=== PATIENT | male | born 1995 | race Caucasian/White ===

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

== ENCOUNTER 2020-12-27 12:47 | Emergency (ER) | payer SELFPAY ==
--- NOTE | 2020-12-27 13:00 | ERPHSYRPT ---
- History of Present Illness Time Seen by Provider: 12/27/20 12:59 Historian: patient Exam Limitations: no limitations Patient Subjective Stated Complaint: Chest pain Triage Nursing Assessment: Patient ambulated back to ED and transferred self to bed. Patient A+O X3. Patient's skin pink, warm and dry. Patient complains of left sided chest discomfort that hurts when taking a deep breath or moving 8/10. Lungs clear a/p etta. Patient denies SOB. Physician History: This is a 25-year-old white male has no prior cardiac history and presents with intermittent left-sided chest pain that is worse with inspiration. He states he is not short of breath. He had no cough present. He denies fevers. He has never had the degree of pain that he has today but he has had intermittent chest pain in the past. He is on no medications. He denies trauma to his chest. Timing/Duration: day(s) (2), worse Quality: sharpness Location: other (Left-sided chest pain) Chest Pain Radiation: no radiation Severity of Pain-Max: mild Severity of Pain-Current: mild Modifying Factors: Improves With: nothing Associated Symptoms: denies symptoms Prior Chest Pain/Cardiac Workup: no prior chest pain Nitro Today/Relief: no nitro taken today Aspirin Treatment Today: no aspirin today Allergies/Adverse Reactions: No Known Drug Allergies Allergy (Verified 12/27/20 12:53) Hx Tetanus, Diphtheria Vaccination/Date Given: Yes (up to date) Hx Influenza Vaccination/Date Given: No Hx Pneumococcal Vaccination/Date Given: No Immunizations Up to Date: Yes Travel Risk - International Travel Have you traveled outside of the country in past 3 weeks: No - Coronavirus Screening Are you exhibiting any of the following symptoms?: No Close contact with a COVID-19 positive Pt in past 14-21 Days: No - Vaccine Status Have you recieved a Covid-19 vaccination: No - Review of Systems Constitutional: No Symptoms Eyes: No Symptoms Ears, Nose, & Throat: No Symptoms Respiratory: No Symptoms Cardiac: Chest Pain Abdominal/Gastrointestinal: No Symptoms Genitourinary Symptoms: No Symptoms Musculoskeletal: No Symptoms Skin: No Symptoms Neurological: No Symptoms Psychological: No Symptoms Endocrine: No Symptoms Hematologic/Lymphatic: No Symptoms Immunological/Allergic: No Symptoms All Other Systems: Reviewed and Negative - Past Medical History Pertinent Past Medical History: No Neurological History: No Pertinent History ENT History: No Pertinent History Cardiac History: No Pertinent History Respiratory History: No Pertinent History Endocrine Medical History: No Pertinent History Musculoskeletal History: No Pertinent History GI Medical History: No Pertinent History History: No Pertinent History Psycho-Social History: No Pertinent History Male Reproductive Disorders: No Pertinent History - Past Surgical History Past Surgical History: Yes Neuro Surgical History: No Pertinent History Cardiac: No Pertinent History Respiratory: No Pertinent History Gastrointestinal: No Pertinent History Genitourinary: No Pertinent History Musculoskeletal: No Pertinent History Male Surgical History: No Pertinent History Other Surgical History: eye surgery at 3 - Social History Smoking Status: Current every day smoker How long have you smoked: years Exposure to second hand smoke: Yes Drug Use: none Patient Lives Alone: No - Nursing Vital Signs Nursing Vital Signs: Initial Vital Signs Temperature 98.0 F 12/27/20 12:54 Pulse Rate 70 12/27/20 12:54 Respiratory Rate 18 12/27/20 12:54 Blood Pressure 124/83 12/27/20 12:54 O2 Sat by Pulse Oximetry 98 12/27/20 12:54 Pain Scale Pain Intensity 8 - Physical Exam General Appearance: no apparent distress, alert, anxiety Eye Exam: PERRL/EOMI, eyes nml inspection Ears, Nose, Throat Exam: normal ENT inspection, moist mucous membranes Neck Exam: normal inspection, non-tender, supple, full range of motion Respiratory Exam: normal breath sounds, chest tenderness, lungs clear, airway intact, No respiratory distress Cardiovascular Exam: regular rate/rhythm, normal heart sounds, normal peripheral pulses Gastrointestinal/Abdomen Exam: soft, normal bowel sounds, No tenderness Rectal Exam: not done Back Exam: normal inspection, normal range of motion, No CVA tenderness, No vertebral tenderness Extremity Exam: normal inspection, normal range of motion, pelvis stable Neurologic Exam: alert, oriented x 3, cooperative, rig mechanic II-XII nml as tested, normal mood/affect, nml cerebellar function, nml station & gait, sensation nml Skin Exam: normal color, warm, dry Lymphatic Exam: No adenopathy SpO2 Interpretation: normal SpO2: 98 O2 Delivery: Room Air - Course Nursing assessment & vital signs reviewed: Yes EKG Interpreted by Me: RATE (63), Sinus Rhythm, NORMAL AXIS, NORMAL INTERVALS, NORMAL QRS, NORMAL ST-T, Other (No acute ischemic changes. No comparison EKG.) Ordered Tests: Active Orders 24 hr Category Date Time Status EKG-ER Only STAT Care 12/27/20 13:13 Active IV Insertion STAT Care 12/27/20 13:13 Active Pulse Oximetry (ED) STAT Care 12/27/20 13:13 Active CHEST 1 VIEW (PORTABLE) Stat Exams 12/27/20 13:13 Completed CBC W DIFF Stat Lab 12/27/20 13:13 Completed CMP Stat Lab 12/27/20 13:13 Completed D-DIMER QUANTITATIVE Stat Lab 12/27/20 13:13 Received TROPONIN Q3H Lab 12/27/20 13:13 Completed TROPONIN Q3H Lab 12/27/20 16:15 Ordered TROPONIN Q3H Lab 12/27/20 19:15 Ordered TROPONIN Q3H Lab 12/27/20 22:15 Ordered TROPONIN Q3H Lab 12/28/20 01:15 Ordered Medication Summary Discontinued Medications Generic Name Dose Route Start Last Admin Trade Name Freq PRN Reason Stop Dose Admin Aspirin 324 mg 12/27/20 13:13 12/27/20 13:19 Aspirin 81 Mg Tab.Chew PO 12/27/20 13:14 324 mg STAT ONE Administration Aspirin Confirm 12/27/20 13:16 Aspirin 81 Mg Tab.Chew Administered 12/27/20 13:17 Dose 324 mg .ROUTE .STK-MED ONE Lab/Rad Data: Laboratory Result Diagrams 12/27/20 13:13 12/27/20 13:13 Laboratory Results 12/27/20 12/27/20 12/27/20 Range/Units 13:13 13:13 13:13 WBC 6.9 (4.0-10.5) K/mm3 RBC 5.05 (4.1-5.6) M/mm3 Hgb 15.5 (12.5-18.0) gm/dl Hct 45.7 (42-50) % MCV 90.5 (78-100) fl MCH 30.7 (26-32) pg MCHC 33.9 (32-36) g/dl RDW 12.3 (11.5-14.0) % Plt Count 232 (150-450) K/mm3 MPV 10.2 (7.5-11.0) fl Gran % 58.8 (36.0-66.0) % Eos # (Auto) 0.20 (0-0.5) Absolute Lymphs (auto) 1.80 (1.0-4.6) Absolute Monos (auto) 0.80 (0.0-1.3) Lymphocytes % 26.3 (24.0-44.0) % Monocytes % 11.7 (0.0-12.0) % Eosinophils % 2.9 (0.00-5.0) % Basophils % 0.3 (0.0-0.4) % Absolute Granulocytes 4.03 (1.4-6.9) Basophils # 0.02 (0-0.4) Sodium 139 (137-145) mmol/L Potassium 4.3 (3.5-5.1) mmol/L Chloride 103 (98-107) mmol/L Carbon Dioxide 27 (22-30) mmol/L Anion Gap 13.8 (5-15) MEQ/L BUN 16 (9-20) mg/dL Creatinine 0.82 (0.66-1.25) mg/dL Estimated GFR > 60.0 ML/MIN Glucose 91 (74-106) mg/dL Calcium 9.5 (8.4-10.2) mg/dL Total Bilirubin 0.60 (0.2-1.3) mg/dL AST 27 (17-59) U/L ALT 15 (0-50) U/L Alkaline Phosphatase 54 (38-126) U/L Troponin I < 0.012 (0.000-0.034) ng/mL Serum Total Protein 7.8 (6.3-8.2) g/dL Albumin 4.7 (3.5-5.0) g/dL - Progress Progress: unchanged Air Movement: good Progress Note: 12/27/20 14:03 Chest x-ray shows new minimal right lower lobe atelectasis versus scarring. Blood Culture(s) Obtained: No Antibiotics given: No Counseled pt/family regarding: lab results, diagnosis, need for follow-up, rad results - Departure Departure Disposition: Home Clinical Impression: Non-cardiac chest pain, Pleurisy Condition: Stable Critical Care Time: No Referrals: JOSHUA JEFFERS MD [Primary Care Provider] - Additional Instructions: Drink plenty of fluids. Use [id number] Tylenol as instructed on the pa ckage. Follow-up with your primary care physician for further management. Prescriptions: Prednisone 10 mg [Deltasone 10 mg] 10 mg PO TID #12 tablet
[2020-12-27] MEDS ORDERED: BABY ASPIRIN 81 MG CHEW PO ONE (13:13)
[2020-12-27] MEDS ORDERED: BABY ASPIRIN 81 MG CHEW ONE (13:16)
[2020-12-27 13:33] LABS: Absolute Neutrophil Ct (ANC) 4.03 (1.4-6.9); BASOPHIL % 0.3 % (0.0-0.4); Basophil (Absolute #) 0.02 (0-0.4); Eosinophil % 2.9 % (0.00-5.0); Hematocrit 45.7 % (42-50); Hemoglobin 15.5 gm/dl (12.5-18.0); Lymphocytes % 26.3 % (24.0-44.0); Mean Cell Volume 90.5 fl (78-100); Mean Corpuscular Hemoglobin 30.7 pg (26-32); Mean Corpuscular Hgb Concent. 33.9 g/dl (32-36); Mean Platelet Volume 10.2 fl (7.5-11.0); Monocytes % 11.7 % (0.0-12.0); Neutrophil % 58.8 % (36.0-66.0); Platelet Count 232 K/mm3 (150-450); Red Blood Count 5.05 M/mm3 (4.1-5.6); Red Cell Distribution Width 12.3 % (11.5-14.0); White Blood Count 6.9 K/mm3 (4.0-10.5)
[2020-12-27 13:41] LABS: ALBUMIN 4.7 g/dL (3.5-5.0); ALKALINE PHOSPHATASE 54 U/L (38-126); ANION GAP 13.8 MEQ/L (5-15); BLOOD UREA NITROGEN 16 mg/dL (9-20); CHLORIDE 103 mmol/L (98-107); Calcium 9.5 mg/dL (8.4-10.2); Carbon Dioxide 27 mmol/L (22-30); Creatinine 1 0.82 mg/dL (0.66-1.25); EST GLOMERULAR FILTRATION RATE > 60.0 ML/MIN; Glucose 91 mg/dL (74-106); Potassium 4.3 mmol/L (3.5-5.1); SGOT/AST 27 U/L (17-59); SGPT/ALT 15 U/L (0-50); SODIUM 139 mmol/L (137-145); Total Protein 7.8 g/dL (6.3-8.2)
--- NOTE | 2020-12-27 13:44 | XRAY ---
Indication: Chest pain. Comparison: August 29, 2014. Portable chest less inflated with new minimal right base subsegmental atelectasis/scarring. Remaining heart, lungs, and bony thorax normal.
[2020-12-27 14:25] VITALS: BP 102/74; PULSE 98; O2SAT 99
== END 2020-12-27 14:25 | disposition home or self-care (01) ==
LOC: ED 12:47
DX: R07.89 Other chest pain (principal); R09.1 Pleurisy
CPT/HCPCS: 36000; 36415; 71045; 80053; 84484; 85025; 85379; 93005; 94760; 99284; A9270-GY

== ENCOUNTER 2021-06-26 18:51 | Emergency (ER) | payer MEDICAID, OTHER, SELFPAY ==
--- NOTE | 2021-06-26 19:12 | ERPHSYRPT ---
- History of Present Illness Time Seen by Provider: 06/26/21 19:07 Historian: patient Exam Limitations: no limitations Patient Subjective Stated Complaint: Chest pain Triage Nursing Assessment: Patient ambulated back to ED and transferred self to bed. Patient A+O X 3. Patient's skin pink, warm and dry. Patient complains of left sided chest pain that radiates down left chest that started around 1630. Patient denies N/V. Physician History: This is a 25-year-old white male with history of intermittent left-sided chest pain for several months. He is a patient of Dr. Jeffers. He had similar symptoms on 12/27/2020. At 430 today, he had sudden onset of left sided chest pain that radiated into his left arm. He is currently daily smoker of cigarettes. He takes no medications chronically and has no known drug allergies. Timing/Duration: today Quality: sharpness Location: other (Left anterior chest) Chest Pain Radiation: arm (Left) Severity of Pain-Max: moderate Severity of Pain-Current: moderate Modifying Factors: Improves With: nothing Associated Symptoms: denies symptoms Nitro Today/Relief: no nitro taken today Aspirin Treatment Today: 81 mg x 4, provided by ED Allergies/Adverse Reactions: No Known Drug Allergies Allergy (Verified 06/26/21 18:55) Home Medications: No Reportable Medications [No Reported Medications] 06/26/21 [History] Hx Tetanus, Diphtheria Vaccination/Date Given: Yes (up to date) Hx Influenza Vaccination/Date Given: No Hx Pneumococcal Vaccination/Date Given: No Immunizations Up to Date: Yes Travel Risk - International Travel Have you traveled outside of the country in past 3 weeks: No - Coronavirus Screening Are you exhibiting any of the following symptoms?: No Close contact with a COVID-19 positive Pt in past 14-21 Days: No - Vaccine Status Have you recieved a Covid-19 vaccination: No - Review of Systems Constitutional: No Symptoms Eyes: No Symptoms Ears, Nose, & Throat: No Symptoms Respiratory: No Symptoms Cardiac: Chest Pain Abdominal/Gastrointestinal: No Symptoms Genitourinary Symptoms: No Symptoms Musculoskeletal: No Symptoms Skin: No Symptoms Neurological: No Symptoms Psychological: No Symptoms Endocrine: No Symptoms Hematologic/Lymphatic: No Symptoms Immunological/Allergic: No Symptoms All Other Systems: Reviewed and Negative - Past Medical History Pertinent Past Medical History: No Neurological History: No Pertinent History ENT History: No Pertinent History Cardiac History: No Pertinent History Respiratory History: No Pertinent History Endocrine Medical History: No Pertinent History Musculoskeletal History: No Pertinent History GI Medical History: No Pertinent History History: No Pertinent History Psycho-Social History: No Pertinent History Male Reproductive Disorders: No Pertinent History - Past Surgical History Past Surgical History: Yes Neuro Surgical History: No Pertinent History Cardiac: No Pertinent History Respiratory: No Pertinent History Gastrointestinal: No Pertinent History Genitourinary: No Pertinent History Musculoskeletal: No Pertinent History Male Surgical History: No Pertinent History Other Surgical History: eye surgery at 3 - Social History Smoking Status: Current every day smoker How long have you smoked: years Exposure to second hand smoke: Yes Drug Use: none Patient Lives Alone: No - Nursing Vital Signs Nursing Vital Signs: Initial Vital Signs Temperature 97.9 F 06/26/21 18:56 Pulse Rate 85 06/26/21 18:56 Respiratory Rate 14 06/26/21 18:56 Blood Pressure 140/81 06/26/21 18:56 O2 Sat by Pulse Oximetry 100 06/26/21 18:56 Pain Scale Pain Intensity 6 - Physical Exam General Appearance: no apparent distress, alert, anxiety Eye Exam: PERRL/EOMI, eyes nml inspection Ears, Nose, Throat Exam: normal ENT inspection, moist mucous membranes Neck Exam: normal inspection, non-tender, supple, full range of motion Respiratory Exam: normal breath sounds, chest tenderness, lungs clear, respiratory distress, airway intact Cardiovascular Exam: regular rate/rhythm, normal heart sounds, normal peripheral pulses Gastrointestinal/Abdomen Exam: soft, normal bowel sounds, No tenderness Rectal Exam: not done Back Exam: normal inspection, normal range of motion, No CVA tenderness, No vertebral tenderness Extremity Exam: normal inspection, normal range of motion, pelvis stable Neurologic Exam: alert, oriented x 3, cooperative, leno sewer II-XII nml as tested, normal mood/affect, nml cerebellar function, nml station & gait, sensation nml Skin Exam: normal color, warm, dry Lymphatic Exam: No adenopathy SpO2 Interpretation: normal SpO2: 100 O2 Delivery: Room Air - Course Nursing assessment & vital signs reviewed: Yes EKG Interpreted by Me: RATE (82), Sinus Rhythm, NORMAL AXIS, NORMAL INTERVALS, NORMAL QRS, NORMAL ST-T, Other (No ischemic changes. When compared to EKG of 1 , there are no changes) Ordered Tests: Active Orders 24 hr Category Date Time Status Cold Roller STAT Care 06/26/21 19:13 Active EKG-ER Only STAT Care 06/26/21 19:12 Active IV Insertion STAT Care 06/26/21 19:12 Active Pulse Oximetry (ED) STAT Care 06/26/21 19:12 Active CHEST 1 VIEW (PORTABLE) Stat Exams 06/26/21 19:24 Taken CBC W DIFF Stat Lab 06/26/21 19:21 Completed CMP Stat Lab 06/26/21 19:21 Completed D-DIMER QUANTITATIVE Stat Lab 06/26/21 19:21 Completed TROPONIN Q3H Lab 06/26/21 19:21 Completed TROPONIN Q3H Lab 06/26/21 22:15 Ordered TROPONIN Q3H Lab 06/27/21 01:15 Ordered TROPONIN Q3H Lab 06/27/21 04:15 Ordered TROPONIN Q3H Lab 06/27/21 07:15 Ordered Medication Summary Discontinued Medications Generic Name Dose Route Start Last Admin Trade Name Freq PRN Reason Stop Dose Admin Aspirin 324 mg 06/26/21 19:14 06/26/21 19:19 Aspirin 81 Mg Tab.Chew PO 06/26/21 19:15 324 mg STAT ONE Administration Aspirin Confirm 06/26/21 19:19 Aspirin 81 Mg Tab.Chew Administered 06/26/21 19:20 Dose 81 mg .ROUTE .STK-MED ONE Morphine Sulfate 2 mg 06/26/21 19:27 06/26/21 19:37 Morphine Sulfate 2 Mg/Ml Inj IV 06/26/21 19:28 2 mg STAT ONE Administration Morphine Sulfate Confirm 06/26/21 19:34 Morphine Sulfate 2 Mg/Ml Inj Administered 06/26/21 19:35 Dose 2 mg .ROUTE .STK-MED ONE Ondansetron HCl 4 mg 06/26/21 19:27 06/26/21 19:36 Ondansetron Hcl 4 Mg/2 Ml Vial IV 06/26/21 19:28 4 mg STAT ONE Administration Ondansetron HCl Confirm 06/26/21 19:34 Ondansetron Hcl 4 Mg/2 Ml Vial Administered 06/26/21 19:35 Dose 4 mg .ROUTE .STK-MED ONE Lab/Rad Data: Laboratory Result Diagrams 06/26/21 19:21 06/26/21 19:21 Laboratory Results 06/26/21 06/26/21 06/26/21 Range/Units 19:21 19:21 19:21 WBC (4.0-10.5) K/mm3 RBC (4.1-5.6) M/mm3 Hgb (12.5-18.0) gm/dl Hct (42-50) % MCV (78-100) fl MCH (26-32) pg MCHC (32-36) g/dl RDW (11.5-14.0) % Plt Count (150-450) K/mm3 MPV (7.5-11.0) fl Gran % (36.0-66.0) % Eos # (Auto) (0-0.5) Absolute Lymphs (auto) (1.0-4.6) Absolute Monos (auto) (0.0-1.3) Lymphocytes % (24.0-44.0) % Monocytes % (0.0-12.0) % Eosinophils % (0.00-5.0) % Basophils % (0.0-0.4) % Absolute Granulocytes (1.4-6.9) Basophils # (0-0.4) D-Dimer < 215 L (215-500) ng/mL Sodium 139 (137-145) mmol/L Potassium 3.9 (3.5-5.1) mmol/L Chloride 102 (98-107) mmol/L Carbon Dioxide 25 (22-30) mmol/L Anion Gap 15.4 H (5-15) MEQ/L BUN 15 (9-20) mg/dL Creatinine 0.80 (0.66-1.25) mg/dL Estimated GFR > 60.0 ML/MIN Glucose 96 (74-106) mg/dL Calcium 9.5 (8.4-10.2) mg/dL Total Bilirubin 0.60 (0.2-1.3) mg/dL AST 33 (17-59) U/L ALT 37 (0-50) U/L Alkaline Phosphatase 60 (38-126) U/L Troponin I < 0.012 (0.000-0.034) ng/mL Serum Total Protein 7.7 (6.3-8.2) g/dL Albumin 4.6 (3.5-5.0) g/dL 06/26/21 Range/Units 19:21 WBC 9.0 (4.0-10.5) K/mm3 RBC 4.92 (4.1-5.6) M/mm3 Hgb 15.1 (12.5-18.0) gm/dl Hct 43.9 (42-50) % MCV 89.2 (78-100) fl MCH 30.7 (26-32) pg MCHC 34.4 (32-36) g/dl RDW 12.7 (11.5-14.0) % Plt Count 252 (150-450) K/mm3 MPV 9.7 (7.5-11.0) fl Gran % 65.7 (36.0-66.0) % Eos # (Auto) 0.14 (0-0.5) Absolute Lymphs (auto) 2.06 (1.0-4.6) Absolute Monos (auto) 0.86 (0.0-1.3) Lymphocytes % 23.0 L (24.0-44.0) % Monocytes % 9.6 (0.0-12.0) % Eosinophils % 1.6 (0.00-5.0) % Basophils % 0.1 (0.0-0.4) % Absolute Granulocytes 5.89 (1.4-6.9) Basophils # 0.01 (0-0.4) D-Dimer (215-500) ng/mL Sodium (137-145) mmol/L Potassium (3.5-5.1) mmol/L Chloride (98-107) mmol/L Carbon Dioxide (22-30) mmol/L Anion Gap (5-15) MEQ/L BUN (9-20) mg/dL Creatinine (0.66-1.25) mg/dL Estimated GFR ML/MIN Glucose (74-106) mg/dL Calcium (8.4-10.2) mg/dL Total Bilirubin (0.2-1.3) mg/dL AST (17-59) U/L ALT (0-50) U/L Alkaline Phosphatase (38-126) U/L Troponin I (0.000-0.034) ng/mL Serum Total Protein (6.3-8.2) g/dL Albumin (3.5-5.0) g/dL - Progress Progress: improved, re-examined Air Movement: good Progress Note: 06/26/21 19:54 Chest x-ray shows no acute cardiopulmonary process Blood Culture(s) Obtained: No Antibiotics given: No Counseled pt/family regarding: lab results, diagnosis, need for follow-up, rad results - Departure Departure Disposition: Home Clinical Impression: Non-cardiac chest pain Condition: Stable Critical Care Time: No Referrals: JOSHUA JEFFERS MD [Primary Care Provider] - Follow up/PCP as directed Additional Instructions: Stop vaping and stop using tobacco in any form. Follow-up with your primary care doctor for further evaluation management including referral to a charging crane operator if indicated.
[2021-06-26] MEDS ORDERED: BABY ASPIRIN 81 MG CHEW PO ONE (19:14)
[2021-06-26] MEDS ORDERED: BABY ASPIRIN 81 MG CHEW ONE (19:19)
[2021-06-26 19:27] LABS: Absolute Neutrophil Ct (ANC) 5.89 (1.4-6.9); Basophil (Absolute #) 0.01 (0-0.4); Eosinophil % 1.6 % (0.00-5.0); Eosinophil (Absolute #) 0.14 (0-0.5); Hematocrit 43.9 % (42-50); Hemoglobin 15.1 gm/dl (12.5-18.0); Lymphocyte (Absolute #) 2.06 (1.0-4.6); Mean Cell Volume 89.2 fl (78-100); Mean Corpuscular Hemoglobin 30.7 pg (26-32); Mean Corpuscular Hgb Concent. 34.4 g/dl (32-36); Mean Platelet Volume 9.7 fl (7.5-11.0); Monocyte (Absolute #) 0.86 (0.0-1.3); Monocytes % 9.6 % (0.0-12.0); Neutrophil % 65.7 % (36.0-66.0); Platelet Count 252 K/mm3 (150-450); Red Blood Count 4.92 M/mm3 (4.1-5.6); Red Cell Distribution Width 12.7 % (11.5-14.0)
[2021-06-26] MEDS ORDERED: MORPHINE SULFATE 2 MG INJ IV ONE (19:27)
[2021-06-26] MEDS ORDERED: Zofran 4 MG/2 ML VIAL IV ONE (19:27)
[2021-06-26] MEDS ORDERED: MORPHINE SULFATE 2 MG INJ ONE (19:34)
[2021-06-26] MEDS ORDERED: Zofran 4 MG/2 ML VIAL ONE (19:34)
[2021-06-26 19:35] LABS: ALBUMIN 4.6 g/dL (3.5-5.0); ALKALINE PHOSPHATASE 60 U/L (38-126); ANION GAP 15.4 MEQ/L (5-15); BLOOD UREA NITROGEN 15 mg/dL (9-20); CHLORIDE 102 mmol/L (98-107); Calcium 9.5 mg/dL (8.4-10.2); Carbon Dioxide 25 mmol/L (22-30); EST GLOMERULAR FILTRATION RATE > 60.0 ML/MIN; Glucose 96 mg/dL (74-106); Potassium 3.9 mmol/L (3.5-5.1); SGOT/AST 33 U/L (17-59); SGPT/ALT 37 U/L (0-50); SODIUM 139 mmol/L (137-145); Total Protein 7.7 g/dL (6.3-8.2)
[2021-06-26 20:07] VITALS: BP 123/57; PULSE 63; O2SAT 98
--- NOTE | 2021-06-27 09:02 | XRAY ---
Indication: Left chest pain. Comparison: December 27, 2020. Portable chest demonstrates normal heart, lungs, and bony thorax.
== END 2021-06-26 20:10 | disposition home or self-care (01) ==
LOC: ED 18:51
DX: R07.89 Other chest pain (principal); Z72.0 Tobacco use
CPT/HCPCS: 36000; 36415; 71045; 80053; 84484; 85025; 85379; 93005; 93041; 94760; 96374; 96375; 99284; J2270; J2405; A9270-GY

== ENCOUNTER 2021-12-28 20:03 | Emergency (ER) | payer BC ==
[2021-12-28] MEDS ORDERED: Sodium Chloride 0.9% 1000 ML 1,000 ML IV STA (20:19)
[2021-12-28] MEDS ORDERED: TORAdol 30 mg Injection IV ONE (20:20)
[2021-12-28] MEDS ORDERED: TYLENOL 325 MG PO ONE (20:20)
[2021-12-28] MEDS ORDERED: BENADRYL 50 MG/ML IV ONE (20:20)
[2021-12-28] MEDS ORDERED: Reglan 10 MG/2 ML IV ONE (20:20)
[2021-12-28 20:41] LABS: Appearance CLEAR (CLEAR); Bilirubin NEGATIVE (NEGATIVE); Epithelial Cells RARE /HPF (FEW); Glucose NEGATIVE (NEGATIVE); Ketones NEGATIVE (NEGATIVE); Mucus SLIGHT /HPF (NEGATIVE); RBC 0-2 /HPF (0-2); Specific Gravity 1.025 (1.005-1.025); WBC 0-2 /HPF (0-5)
[2021-12-28 20:42] LABS: Bacteria NONE SEEN /HPF (NEGATIVE); Dipstick done @ ? MAIN LAB; Nitrite NEGATIVE (NEGATIVE); Protein,Urine Dip NEGATIVE (Negative); RBC NEGATIVE Ery/ul (0-5); Urine Cultured Indicated? NO; Urobilinogen 1 mg/dL (0-1)
[2021-12-28 20:57] LABS: Amphetamine,Urine NEGATIVE (NEGATIVE); Barbiturate,Urine NEGATIVE (NEGATIVE); Benzodiazepine,Urine NEGATIVE (NEGATIVE); Cocaine,Urine NEGATIVE (NEGATIVE); Methadone,Urine NEGATIVE (NEGATIVE); Opiate,Urine NEGATIVE (NEGATIVE); PCP,Urine NEGATIVE (NEGATIVE); THC,Urine POSITIVE (NEGATIVE)
[2021-12-28 21:07] LABS: Absolute Neutrophil Ct (ANC) 3.54 x10^3/uL (1.4-6.9); Basophil (Absolute #) 0.01 x10^3/uL (0-0.4); Eosinophil % 2.2 % (0.00-5.0); Eosinophil (Absolute #) 0.12 x10^3/uL (0-0.5); Hematocrit 44.3 % (42-50); Hemoglobin 15.1 g/dL (12.5-18.0); Lymphocyte (Absolute #) 1.01 x10^3/uL (1.0-4.6); Lymphocytes % 18.6 % (24.0-44.0); Mean Cell Volume 90.2 fL (78-100); Mean Corpuscular Hemoglobin 30.8 pg (26-32); Mean Corpuscular Hgb Concent. 34.1 g/dL (32-36); Mean Platelet Volume 9.3 fL (7.5-11.0); Monocyte (Absolute #) 0.73 x10^3/uL (0.0-1.3); Monocytes % 13.5 % (0.0-12.0); Neutrophil % 65.3 % (36.0-66.0); Platelet Count 219 x10^3/uL (150-450); Red Blood Count 4.91 x10^6/uL (4.1-5.6); Red Cell Distribution Width 12.1 % (11.5-14.0); White Blood Count 5.4 x10^3/uL (4.0-10.5)
[2021-12-28] MEDS ORDERED: TORAdol 30 mg Injection ONE (21:07)
[2021-12-28] MEDS ORDERED: BENADRYL 50 MG/ML ONE (21:07)
[2021-12-28] MEDS ORDERED: TYLENOL 325 MG ONE (21:08)
[2021-12-28] MEDS ORDERED: Sodium Chloride 0.9% 1000 ML 1,000 ML ONE (21:09)
[2021-12-28] MEDS ORDERED: Reglan 10 MG/2 ML ONE (21:09)
[2021-12-28 21:20] LABS: ALBUMIN 4.7 g/dL (3.5-5.0); ALKALINE PHOSPHATASE 53 U/L (38-126); ANION GAP 12.6 MEQ/L (5-15); BLOOD UREA NITROGEN 13 mg/dL (9-20); CHLORIDE 103 mmol/L (98-107); Calcium 9.6 mg/dL (8.4-10.2); Carbon Dioxide 27 mmol/L (22-30); Creatinine 1 0.76 mg/dL (0.66-1.25); EST GLOMERULAR FILTRATION RATE > 60.0 ML/MIN; ETHYL ALCOHOL < 10 mg/dL (0-10); Glucose 104 mg/dL (74-106); MAGNESIUM 1.9 mg/dL (1.6-2.3); SGOT/AST 18 U/L (17-59); SGPT/ALT 17 U/L (0-50); SODIUM 138 mmol/L (137-145); Total Protein 7.6 g/dL (6.3-8.2)
[2021-12-28 22:06] VITALS: BP 102/60; PULSE 52; O2SAT 96
--- NOTE | 2021-12-28 22:31 | ERPHSYRPT ---
- History of Present Illness Time Seen by Provider: 12/28/21 20:08 Source: patient, family Exam Limitations: no limitations Patient Subjective Stated Complaint: Pt states "I was on my way to work and I started feeling confused. I went to [facility] the other day and they did the labs and swabs." Triage Nursing Assessment: Pt ambulatory to bed by self, pt alert and oriented x3, pt c/o intermittent confusion and headache, pt was seen at [facility] and had labs and swabs done. 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 Patient reports he does not feel himself. Earlier he was driving to work and felt as if he was confused. When asked patient could not explain what did he mean by confusion. Reports having dull aching headache mild to moderate with no significant aggravating relieving factors. Denies associated neck pain, nausea vomiting, blurry vision, difficulty speech etc. Patient report he drinks heavily but have not had a drink in the last few days. He denies any drug use. No fever or chills repor stephenie. Denies any chest pain palpitations or shortness of breath. Timing/Duration: day(s) (2), intermittent, gradual onset Quality: dullness Head Pain Location: frontal, temporal, parietal Severity of Pain-Max: moderate Severity of Pain-Current: moderate Recent Head Trauma: no recent headache/trauma Associated Symptoms: confusion, fatigue, No facial pain, No fever/chills, No light-headedness, No loss of consciousness, No nausea/vomiting, No nasal congestion, No neck pain, No numbness in legs/feet, No sweating, No seizures, No sinus infection, No sensitive to light, No speech problems, No stiff neck, No trouble walking, No vision changes, No visual disturbance Previous symptoms: no prior history Allergies/Adverse Reactions: No Known Drug Allergies Allergy (Verified 12/28/21 20:12) Home Medications: No Reportable Medications [No Reported Medications] 06/26/21 [History] Hx Tetanus, Diphtheria Vaccination/Date Given: No Hx Influenza Vaccination/Date Given: No Hx Pneumococcal Vaccination/Date Given: No Immunizations Up to Date: Yes Travel Risk - International Travel Have you traveled outside of the country in past 3 weeks: No - Coronavirus Screening Are you exhibiting any of the following symptoms?: No Close contact with a COVID-19 positive Pt in past 14-21 Days: No - Vaccine Status Have you recieved a Covid-19 vaccination: No - Review of Systems Constitutional: Fatigue Eyes: No Symptoms Ears, Nose, & Throat: No Symptoms Respiratory: No Symptoms Cardiac: No Symptoms Abdominal/Gastrointestinal: No Symptoms Genitourinary Symptoms: No Symptoms Musculoskeletal: No Symptoms Skin: No Symptoms Neurological: Headache Psychological: No Symptoms Endocrine: No Symptoms Hematologic/Lymphatic: No Symptoms Immunological/Allergic: No Symptoms - Past Medical History Pertinent Past Medical History: No Neurological History: No Pertinent History ENT History: No Pertinent History Cardiac History: No Pertinent History Respiratory History: No Pertinent History Endocrine Medical History: No Pertinent History Musculoskeletal History: No Pertinent History GI Medical History: No Pertinent History History: No Pertinent History Psycho-Social History: No Pertinent History Male Reproductive Disorders: No Pertinent History - Past Surgical History Past Surgical History: Yes Neuro Surgical History: No Pertinent History Cardiac: No Pertinent History Respiratory: No Pertinent History Gastrointestinal: No Pertinent History Genitourinary: No Pertinent History Musculoskeletal: No Pertinent History Male Surgical History: No Pertinent History Other Surgical History: eye surgery at 3 - Social History Smoking Status: Current every day smoker How long have you smoked: years Exposure to second hand smoke: Yes Drug Use: none Patient Lives Alone: No - Nursing Vital Signs Nursing Vital Signs: Initial Vital Signs Temperature 98.0 F 12/28/21 20:12 Pulse Rate 64 12/28/21 20:12 Respiratory Rate 18 12/28/21 20:12 Blood Pressure 127/79 12/28/21 20:12 O2 Sat by Pulse Oximetry 98 12/28/21 20:12 Pain Scale Pain Intensity 6 - Physical Exam General Appearance: no apparent distress, alert Eye Exam: PERRL/EOMI, eyes nml inspection Ears, Nose, Throat Exam: normal ENT inspection, TMs normal, pharynx normal, moist mucous membranes Neck Exam: normal inspection, non-tender, supple, full range of motion Respiratory Exam: normal breath sounds, lungs clear Cardiovascular Exam: regular rate/rhythm, normal heart sounds Gastrointestinal/Abdominal Exam: soft, normal bowel sounds, No tenderness Back Exam: normal inspection, normal range of motion Extremity Exam: normal inspection, normal range of motion Mental Status Exam: alert, oriented x 3, 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: normal hearing, normal speech, PERRL Coordination/Gait Exam: normal finger to nose, normal gait, normal cerebellar function, negative Romberg's sign Motor/Sensory Exam: no motor deficit, no sensory deficit, no pronator drift, negative Babinski's sign DTR Exam: bicep (R): 2+, bicep (L): 2+, knee (R): 2+, knee (L): 2+ Skin Exam: normal color SpO2 Interpretation: normal SpO2: 96 O2 Delivery: Room Air - Course EKG Interpreted by Me: RATE (63), Sinus Rhythm, NORMAL AXIS, NORMAL INTERVALS, NORMAL QRS Ordered Tests: Active Orders 24 hr Category Date Time Status EKG-ER Only STAT Care 12/28/21 20:19 Active IV Insertion STAT Care 12/28/21 20:19 Active NPO (ED) STAT Care 12/28/21 20:19 Active POCT Glucose Check STAT Care 12/28/21 20:19 Active HEAD WITHOUT CONTRAST [CT] Stat Exams 12/28/21 20:20 Taken CBC W DIFF Stat Lab 12/28/21 21:04 Completed CMP Stat Lab 12/28/21 21:04 Completed ETHYL ALCOHOL Stat Lab 12/28/21 21:04 Completed Lactic Acid Stat Lab 12/28/21 21:01 Completed MAGNESIUM Stat Lab 12/28/21 21:04 Completed POCT GLUCOSE Stat Lab 12/28/21 21:01 Completed TROPONIN Q3H Lab 12/28/21 21:04 Completed UA W/RFX CULTURE Stat Lab 12/28/21 20:25 Completed Urine Triage Profile Stat Lab 12/28/21 20:25 Completed Medication Summary Discontinued Medications Generic Name Dose Route Start Last Admin Trade Name Joseq PRN Reason Stop Dose Admin Acetaminophen 975 mg 12/28/21 20:20 12/28/21 21:13 Acetaminophen 325 Mg Tablet PO 12/28/21 20:21 975 mg STAT ONE Administration Acetaminophen Confirm 12/28/21 21:08 Acetaminophen 325 Mg Tablet Administered 12/28/21 21:09 Dose 975 mg .ROUTE .STK-MED ONE Diphenhydramine HCl 25 mg 12/28/21 20:20 12/28/21 21:18 Diphenhydramine Hcl 50 Mg/Ml Vial IV 12/28/21 20:21 25 mg STAT ONE Administration Diphenhydramine HCl Confirm 12/28/21 21:07 Diphenhydramine Hcl 50 Mg/Ml Vial Administered 12/28/21 21:08 Dose 50 mg .ROUTE .STK-MED ONE Sodium Chloride 1,000 mls @ 999 mls/hr 12/28/21 20:19 12/28/21 22:24 Sodium Chloride 0.9% 1000 Ml IV 12/28/21 21:19 Infused .Q1H1M STA Infusion Sodium Chloride Confirm 12/28/21 21:09 Sodium Chloride 0.9% 1000 Ml Administered 12/28/21 21:10 Dose 1,000 mls @ ud .ROUTE .STK-MED ONE Ketorolac Tromethamine 30 mg 12/28/21 20:20 12/28/21 21:16 Ketorolac Tromethamine 30 Mg/Ml Inj IV 12/28/21 20:21 30 mg STAT ONE Administration Ketorolac Tromethamine Confirm 12/28/21 21:07 Ketorolac Tromethamine 30 Mg/Ml Inj Administered 12/28/21 21:08 Dose 30 mg .ROUTE .STK-MED ONE Metoclopramide HCl 10 mg 12/28/21 20:20 12/28/21 21:19 Metoclopramide Hcl 10 Mg/2 Ml Vial IV 12/28/21 20:21 10 mg STAT ONE Administration Metoclopramide HCl Confirm 12/28/21 21:09 Metoclopramide Hcl 10 Mg/2 Ml Vial Administered 12/28/21 21:10 Dose 10 mg .ROUTE .STK-MED ONE Lab/Rad Data: Laboratory Result Diagrams 12/28/21 21:04 12/28/21 21:04 Laboratory Results 12/28/21 12/28/21 12/28/21 Range/Units 21:04 21:04 21:04 WBC 5.4 (4.0-10.5) x10^3/uL RBC 4.91 (4.1-5.6) x10^6/uL Hgb 15.1 (12.5-18.0) g/dL Hct 44.3 (42-50) % MCV 90.2 (78-100) fL MCH 30.8 (26-32) pg MCHC 34.1 (32-36) g/dL RDW 12.1 (11.5-14.0) % Plt Count 219 (150-450) x10^3/uL MPV 9.3 (7.5-11.0) fL Gran % 65.3 (36.0-66.0) % Immature Gran % (Auto) 0.2 (0.00-0.4) % Nucleat RBC Rel Count 0.0 (0.00-0.1) % Eos # (Auto) 0.12 (0-0.5) x10^3/uL Immature Gran # (Auto) 0.01 (0.00-0.03) x10^3u/L Absolute Lymphs (auto) 1.01 (1.0-4.6) x10^3/uL Absolute Monos (auto) 0.73 (0.0-1.3) x10^3/uL Absolute Nucleated RBC 0.00 (0.00-0.01) x10^3u/L Lymphocytes % 18.6 L (24.0-44.0) % Monocytes % 13.5 H (0.0-12.0) % Eosinophils % 2.2 (0.00-5.0) % Basophils % 0.2 (0.0-0.4) % Absolute Granulocytes 3.54 (1.4-6.9) x10^3/uL Basophils # 0.01 (0-0.4) x10^3/uL Sodium 138 (137-145) mmol/L Potassium 4.0 (3.5-5.1) mmol/L Chloride 103 (98-107) mmol/L Carbon Dioxide 27 (22-30) mmol/L Anion Gap 12.6 (5-15) MEQ/L BUN 13 (9-20) mg/dL Creatinine 0.76 (0.66-1.25) mg/dL Estimated GFR > 60.0 ML/MIN Glucose 104 (74-106) mg/dL POC Glucometer (74 to 106) mg/dL Lactic Acid (0.4-2.0) Calcium 9.6 (8.4-10.2) mg/dL Magnesium 1.9 (1.6-2.3) mg/dL Total Bilirubin 0.70 (0.2-1.3) mg/dL AST 18 (17-59) U/L ALT 17 (0-50) U/L Alkaline Phosphatase 53 (38-126) U/L Troponin I < 0.012 (0.000-0.034) ng/mL Serum Total Protein 7.6 (6.3-8.2) g/dL Albumin 4.7 (3.5-5.0) g/dL Urinalys Dipstick Clnc Urine Color (YELLOW) Urine Appearance (CLEAR) Urine pH (5-6) Ur Specific Conway (1.005-1.025) POC Urine Protein Conf (Negative) Urine Ketones (NEGATIVE) Urine Nitrite (NEGATIVE) Urine Bilirubin (NEGATIVE) Urine Urobilinogen (0-1) mg/dL Urine Leukocytes (NEGATIVE) Urine WBC (Auto) (0-5) /HPF Urine RBC (Auto) (0-2) /HPF U Epithel Cells (Auto) (FEW) /HPF Urine Bacteria (Auto) (NEGATIVE) /HPF Urine RBC (0-5) Tyrese/ul Urine Mucus (Auto) (NEGATIVE) /HPF Ur Culture Indicated? Urine Glucose (NEGATIVE) mg/dL Urine Opiates Level (NEGATIVE) Ur Methadone (NEGATIVE) Urine Barbiturates (NEGATIVE) Ur Phencyclidine (PCP) (NEGATIVE) Urine Amphetamine (NEGATIVE) U Benzodiazepine Level (NEGATIVE) Urine Cocaine (NEGATIVE) Urine Marijuana (THC) (NEGATIVE) Ethyl Alcohol < 10 (0-10) mg/dL 12/28/21 12/28/21 12/28/21 Range/Units 21:01 21:01 20:25 WBC (4.0-10.5) x10^3/uL RBC (4.1-5.6) x10^6/uL Hgb (12.5-18.0) g/dL Hct (42-50) % MCV (78-100) fL MCH (26-32) pg MCHC (32-36) g/dL RDW (11.5-14.0) % Plt Count (150-450) x10^3/uL MPV (7.5-11.0) fL Gran % (36.0-66.0) % Immature Gran % (Auto) (0.00-0.4) % Nucleat RBC Rel Count (0.00-0.1) % Eos # (Auto) (0-0.5) x10^3/uL Immature Gran # (Auto) (0.00-0.03) x10^3u/L Absolute Lymphs (auto) (1.0-4.6) x10^3/uL Absolute Monos (auto) (0.0-1.3) x10^3/uL Absolute Nucleated RBC (0.00-0.01) x10^3u/L Lymphocytes % (24.0-44.0) % Monocytes % (0.0-12.0) % Eosinophils % (0.00-5.0) % Basophils % (0.0-0.4) % Absolute Granulocytes (1.4-6.9) x10^3/uL Basophils # (0-0.4) x10^3/uL Sodium (137-145) mmol/L Potassium (3.5-5.1) mmol/L Chloride (98-107) mmol/L Carbon Dioxide (22-30) mmol/L Anion Gap (5-15) MEQ/L BUN (9-20) mg/dL Creatinine (0.66-1.25) mg/dL Estimated GFR ML/MIN Glucose (74-106) mg/dL POC Glucometer 98 (74 to 106) mg/dL Lactic Acid 1.7 (0.4-2.0) Calcium (8.4-10.2) mg/dL Magnesium (1.6-2.3) mg/dL Total Bilirubin (0.2-1.3) mg/dL AST (17-59) U/L ALT (0-50) U/L Alkaline Phosphatase (38-126) U/L Troponin I (0.000-0.034) ng/mL Serum Total Protein (6.3-8.2) g/dL Albumin (3.5-5.0) g/dL Urinalys Dipstick Clnc MAIN LAB Urine Color YELLOW (YELLOW) Urine Appearance CLEAR (CLEAR) Urine pH 6.0 (5-6) Ur Specific Conway 1.025 (1.005-1.025) POC Urine Protein Conf NEGATIVE (Negative) Urine Ketones NEGATIVE (NEGATIVE) Urine Nitrite NEGATIVE (NEGATIVE) Urine Bilirubin NEGATIVE (NEGATIVE) Urine Urobilinogen 1 A (0-1) mg/dL Urine Leukocytes NEGATIVE (NEGATIVE) Urine WBC (Auto) 0-2 (0-5) /HPF Urine RBC (Auto) 0-2 (0-2) /HPF U Epithel Cells (Auto) RARE (FEW) /HPF Urine Bacteria (Auto) NONE SEEN (NEGATIVE) /HPF Urine RBC NEGATIVE (0-5) Tyrese/ul Urine Mucus (Auto) SLIGHT A (NEGATIVE) /HPF Ur Culture Indicated? NO Urine Glucose NEGATIVE (NEGATIVE) mg/dL Urine Opiates Level (NEGATIVE) Ur Methadone (NEGATIVE) Urine Barbiturates (NEGATIVE) Ur Phencyclidine (PCP) (NEGATIVE) Urine Amphetamine (NEGATIVE) U Benzodiazepine Level (NEGATIVE) Urine Cocaine (NEGATIVE) Urine Marijuana (THC) (NEGATIVE) Ethyl Alcohol (0-10) mg/dL 12/28/21 Range/Units 20:25 WBC (4.0-10.5) x10^3/uL RBC (4.1-5.6) x10^6/uL Hgb (12.5-18.0) g/dL Hct (42-50) % MCV (78-100) fL MCH (26-32) pg MCHC (32-36) g/dL RDW (11.5-14.0) % Plt Count (150-450) x10^3/uL MPV (7.5-11.0) fL Gran % (36.0-66.0) % Immature Gran % (Auto) (0.00-0.4) % Nucleat RBC Rel Count (0.00-0.1) % Eos # (Auto) (0-0.5) x10^3/uL Immature Gran # (Auto) (0.00-0.03) x10^3u/L Absolute Lymphs (auto) (1.0-4.6) x10^3/uL Absolute Monos (auto) (0.0-1.3) x10^3/uL Absolute Nucleated RBC (0.00-0.01) x10^3u/L Lymphocytes % (24.0-44.0) % Monocytes % (0.0-12.0) % Eosinophils % (0.00-5.0) % Basophils % (0.0-0.4) % Absolute Granulocytes (1.4-6.9) x10^3/uL Basophils # (0-0.4) x10^3/uL Sodium (137-145) mmol/L Potassium (3.5-5.1) mmol/L Chloride (98-107) mmol/L Carbon Dioxide (22-30) mmol/L Anion Gap (5-15) MEQ/L BUN (9-20) mg/dL Creatinine (0.66-1.25) mg/dL Estimated GFR ML/MIN Glucose (74-106) mg/dL POC Glucometer (74 to 106) mg/dL Lactic Acid (0.4-2.0) Calcium (8.4-10.2) mg/dL Magnesium (1.6-2.3) mg/dL Total Bilirubin (0.2-1.3) mg/dL AST (17-59) U/L ALT (0-50) U/L Alkaline Phosphatase (38-126) U/L Troponin I (0.000-0.034) ng/mL Serum Total Protein (6.3-8.2) g/dL Albumin (3.5-5.0) g/dL Urinalys Dipstick Clnc Urine Color (YELLOW) Urine Appearance (CLEAR) Urine pH (5-6) Ur Specific Conway (1.005-1.025) POC Urine Protein Conf (Negative) Urine Ketones (NEGATIVE) Urine Nitrite (NEGATIVE) Urine Bilirubin (NEGATIVE) Urine Urobilinogen (0-1) mg/dL Urine Leukocytes (NEGATIVE) Urine WBC (Auto) (0-5) /HPF Urine RBC (Auto) (0-2) /HPF U Epithel Cells (Auto) (FEW) /HPF Urine Bacteria (Auto) (NEGATIVE) /HPF Urine RBC (0-5) Tyrese/ul Urine Mucus (Auto) (NEGATIVE) /HPF Ur Culture Indicated? Urine Glucose (NEGATIVE) mg/dL Urine Opiates Level NEGATIVE (NEGATIVE) Ur Methadone NEGATIVE (NEGATIVE) Urine Barbiturates NEGATIVE (NEGATIVE) Ur Phencyclidine (PCP) NEGATIVE (NEGATIVE) Urine Amphetamine NEGATIVE (NEGATIVE) U Benzodiazepine Level NEGATIVE (NEGATIVE) Urine Cocaine NEGATIVE (NEGATIVE) Urine Marijuana (THC) POSITIVE (NEGATIVE) Ethyl Alcohol (0-10) mg/dL - Progress Progress: improved Air Movement: good Progress Note: 12/28/21 22:30 Patient has nonfocal neuro exam throughout stay in the ER. Does not seem like patient is having acute neuro event but seems more of a migraine. Given migraine cocktail, on reevaluation his headache is resolved and feeling better. Does not have any confusion. Patient baseline work-up is unremarkable. I have obtained CT head which is negative as well. Do not think patient needs neurology evaluation. Do not think patient needs to be admitted or any other work-up and is stable for discharge with outpatient follow-up. Discussed signs symptoms of worsening needing return to ER which he seems understanding. Blood Culture(s) Obtained: No Antibiotics given: No Counseled pt/family regarding: lab results, diagnosis, need for follow-up, rad results, smoking cessation - Departure Departure Disposition: Home Clinical Impression: Migraine Condition: Stable Critical Care Time: No Referrals: JOSHUA JEFFERS MD [Primary Care Provider] - Follow up/PCP as directed (1-2 days for reevaluation) Instructions: Headache, Adult (DC) Additional Instructions: Take Tylenol/ibuprofen as needed for headache. Follow-up with primary care for reevaluation and may need referral for neurology. Return to ER for intractable headache, numbness tingling focal weakness, visual disturbance, difficulty speech etc.
--- NOTE | 2021-12-29 08:49 | XRAY ---
Indication: Confusion and headache. Multiple contiguous axial images obtained through the head without contrast. Comparison: August 29, 2014 Normal appearing brain parenchyma, ventricles, and bony calvarium. Visualized paranasal sinuses and mastoid air cells are clear. Impression: Continued normal CT head without contrast exam. Comment: Preliminary interpretation made by [facility]. No critical discrepancy.
== END 2021-12-28 22:41 | disposition home or self-care (01) ==
LOC: ED 20:03
DX: G43.909 Migraine, unspecified, not intractable, without status migrainosus (principal); R41.0 Disorientation, unspecified; Z72.0 Tobacco use; Z28.310 Unvaccinated for COVID-19
CPT/HCPCS: 36000; 36415; 70450; 80053; 80307; 81015; 82947; 83605; 83735; 84484; 85025; 93005; 96360; 96361; 96374; 96375; 99284; J1200; J1885; A9270-GY; G0480

== ENCOUNTER 2022-06-11 13:30 | Emergency (ER) | payer BC ==
--- NOTE | 2022-06-11 13:34 | ERPHSYRPT ---
- History of Present Illness Time Seen by Provider: 06/11/22 13:34 Historian: patient Exam Limitations: no limitations Physician History: This is a 26-year-old white male patient of Dr. Jeffers who had similar symptoms in the past. That is, left sided chest pressure without radiation. Patient states that he was seen by the pilot supervisor approximately 1 year ago and told that he had elevated calcium level and he took medication for a period of time but he is never followed up. 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 There was a sudden onset of the similar left chest pressure. He is not short of breath. He has no nausea vomiting or diarrhea. Patient drove himself into the hospital. Patient continues to smoke cigarettes. He is not on any medications. He has no known drug allergies. Activities at Onset: none Quality: pressure (Left anterior chest) Chest Pain Radiation: no radiation Severity of Pain-Max: mild Severity of Pain-Current: mild Modifying Factors: Improves With: nothing Associated Symptoms: denies symptoms Nitro Today/Relief: no nitro taken today Aspirin Treatment Today: no aspirin today Allergies/Adverse Reactions: No Known Drug Allergies Allergy (Verified 06/11/22 13:32) Home Medications: No Reportable Medications [No Reported Medications] 06/26/21 [History] Hx Tetanus, Diphtheria Vaccination/Date Given: No Hx Influenza Vaccination/Date Given: No Hx Pneumococcal Vaccination/Date Given: No Travel Risk - International Travel Have you traveled outside of the country in past 3 weeks: No - Coronavirus Screening Are you exhibiting any of the following symptoms?: No Close contact with a COVID-19 positive Pt in past 14-21 Days: No - Vaccine Status Have you recieved a Covid-19 vaccination: No - Review of Systems Constitutional: No Symptoms Eyes: No Symptoms Ears, Nose, & Throat: No Symptoms Respiratory: No Symptoms Cardiac: Chest Pain (Pressure left anterior chest wall) Abdominal/Gastrointestinal: No Symptoms Genitourinary Symptoms: No Symptoms Musculoskeletal: No Symptoms Skin: No Symptoms Neurological: No Symptoms Psychological: No Symptoms Endocrine: No Symptoms Hematologic/Lymphatic: No Symptoms Immunological/Allergic: No Symptoms All Other Systems: Reviewed and Negative - Past Medical History Pertinent Past Medical History: No Neurological History: No Pertinent History ENT History: No Pertinent History Cardiac History: No Pertinent History Respiratory History: No Pertinent History Endocrine Medical History: No Pertinent History Musculoskeletal History: No Pertinent History GI Medical History: No Pertinent History History: No Pertinent History Psycho-Social History: No Pertinent History Male Reproductive Disorders: No Pertinent History - Past Surgical History Past Surgical History: Yes Neuro Surgical History: No Pertinent History Cardiac: No Pertinent History Respiratory: No Pertinent History Gastrointestinal: No Pertinent History Genitourinary: No Pertinent History Musculoskeletal: No Pertinent History Male Surgical History: No Pertinent History Other Surgical History: eye surgery at 3 - Social History Smoking Status: Current every day smoker How long have you smoked: years Exposure to second hand smoke: Yes Drug Use: none Patient Lives Alone: No - Nursing Vital Signs Nursing Vital Signs: Initial Vital Signs Temperature 98.2 F 06/11/22 13:33 Pulse Rate 62 06/11/22 13:33 Respiratory Rate 20 06/11/22 13:33 Blood Pressure 125/72 06/11/22 13:33 O2 Sat by Pulse Oximetry 98 06/11/22 13:33 Pain Scale Pain Intensity 7 - Physical Exam General Appearance: no apparent distress, alert, anxiety Eye Exam: PERRL/EOMI, eyes nml inspection Ears, Nose, Throat Exam: normal ENT inspection, moist mucous membranes Neck Exam: normal inspection, non-tender, supple, full range of motion Respiratory Exam: normal breath sounds, chest tenderness, lungs clear (Left anterior chest pressure), airway intact, No respiratory distress Cardiovascular Exam: regular rate/rhythm, normal heart sounds, normal peripheral pulses Gastrointestinal/Abdomen Exam: soft, normal bowel sounds, No tenderness Rectal Exam: not done Back Exam: normal inspection, normal range of motion, No CVA tenderness, No vertebral tenderness Extremity Exam: normal inspection, normal range of motion, pelvis stable Neurologic Exam: alert, oriented x 3, cooperative, ethnology professor II-XII nml as tested, normal mood/affect, nml cerebellar function, nml station & gait, sensation nml Skin Exam: normal color, warm, dry Lymphatic Exam: No adenopathy SpO2 Interpretation: normal O2 Delivery: Room Air - Course Nursing assessment & vital signs reviewed: Yes EKG Interpreted by Me: RATE (78), Sinus Rhythm, NORMAL AXIS, NORMAL INTERVALS, NORMAL QRS, NORMAL ST-T, Other (No acute ischemia on today's twelve-lead EKG.) Ordered Tests: Active Orders 24 hr Category Date Time Status EKG-ER Only STAT Care 06/11/22 13:35 Active CHEST 1 VIEW (PORTABLE) Stat Exams 06/11/22 13:35 Completed CBC W DIFF Stat Lab 06/11/22 13:35 Completed CMP Stat Lab 06/11/22 13:45 Completed D-DIMER QUANTITATIVE Stat Lab 06/11/22 13:45 Completed TROPONIN Q4H Lab 06/11/22 13:45 Completed TROPONIN Q4H Lab 06/11/22 17:45 Ordered TROPONIN Q4H Lab 06/11/22 21:45 Ordered Medication Summary Discontinued Medications Generic Name Dose Route Start Last Admin Trade Name Rebeka PRN Reason Stop Dose Admin Aspirin 324 mg 06/11/22 13:35 06/11/22 13:50 Aspirin 81 Mg Tab.Chew PO 06/11/22 13:36 324 mg STAT ONE Administration Aspirin Confirm 06/11/22 13:48 Aspirin 81 Mg Tab.Chew Administered 06/11/22 13:49 Dose 324 mg .ROUTE .STPressglue-MED ONE Lab/Rad Data: Laboratory Result Diagrams 06/11/22 13:35 06/11/22 13:45 Laboratory Results 06/11/22 06/11/22 06/11/22 Range/Units 13:45 13:45 13:45 WBC (4.0-10.5) x10^3/uL RBC (4.1-5.6) x10^6/uL Hgb (12.5-18.0) g/dL Hct (42-50) % MCV (78-100) fL MCH (26-32) pg MCHC (32-36) g/dL RDW (11.5-14.0) % Plt Count (150-450) x10^3/uL MPV (7.5-11.0) fL Gran % (36.0-66.0) % Immature Gran % (Auto) (0.00-0.4) % Nucleat RBC Rel Count (0.00-0.1) % Eos # (Auto) (0-0.5) x10^3/uL Immature Gran # (Auto) (0.00-0.03) x10^3u/L Absolute Lymphs (auto) (1.0-4.6) x10^3/uL Absolute Monos (auto) (0.0-1.3) x10^3/uL Absolute Nucleated RBC (0.00-0.01) x10^3u/L Lymphocytes % (24.0-44.0) % Monocytes % (0.0-12.0) % Eosinophils % (0.00-5.0) % Basophils % (0.0-0.4) % Absolute Granulocytes (1.4-6.9) x10^3/uL Basophils # (0-0.4) x10^3/uL D-Dimer < 0.19 (0.0-0.50) mg/L Sodium 142 (137-145) mmol/L Potassium 3.9 (3.5-5.1) mmol/L Chloride 106 (98-107) mmol/L Carbon Dioxide 28 (22-30) mmol/L Anion Gap 13.1 (5-15) MEQ/L BUN 17 (9-20) mg/dL Creatinine 1.52 H (0.66-1.25) mg/dL Estimated GFR > 60.0 ML/MIN Glucose 92 (74-106) mg/dL Calcium 8.8 (8.4-10.2) mg/dL Total Bilirubin 0.70 (0.2-1.3) mg/dL AST 24 (17-59) U/L ALT 20 (0-50) U/L Alkaline Phosphatase 50 (38-126) U/L Troponin I < 0.012 (0.000-0.034) ng/mL Serum Total Protein 7.5 (6.3-8.2) g/dL Albumin 4.5 (3.5-5.0) g/dL 06/11/22 Range/Units 13:35 WBC 6.5 (4.0-10.5) x10^3/uL RBC 4.66 (4.1-5.6) x10^6/uL Hgb 14.3 (12.5-18.0) g/dL Hct 41.7 L (42-50) % MCV 89.5 (78-100) fL MCH 30.7 (26-32) pg MCHC 34.3 (32-36) g/dL RDW 11.9 (11.5-14.0) % Plt Count 225 (150-450) x10^3/uL MPV 9.7 (7.5-11.0) fL Gran % 66.3 H (36.0-66.0) % Immature Gran % (Auto) 0.2 (0.00-0.4) % Nucleat RBC Rel Count 0.0 (0.00-0.1) % Eos # (Auto) 0.14 (0-0.5) x10^3/uL Immature Gran # (Auto) 0.01 (0.00-0.03) x10^3u/L Absolute Lymphs (auto) 1.47 (1.0-4.6) x10^3/uL Absolute Monos (auto) 0.56 (0.0-1.3) x10^3/uL Absolute Nucleated RBC 0.00 (0.00-0.01) x10^3u/L Lymphocytes % 22.5 L (24.0-44.0) % Monocytes % 8.6 (0.0-12.0) % Eosinophils % 2.1 (0.00-5.0) % Basophils % 0.3 (0.0-0.4) % Absolute Granulocytes 4.33 (1.4-6.9) x10^3/uL Basophils # 0.02 (0-0.4) x10^3/uL D-Dimer (0.0-0.50) mg/L Sodium (137-145) mmol/L Potassium (3.5-5.1) mmol/L Chloride (98-107) mmol/L Carbon Dioxide (22-30) mmol/L Anion Gap (5-15) MEQ/L BUN (9-20) mg/dL Creatinine (0.66-1.25) mg/dL Estimated GFR ML/MIN Glucose (74-106) mg/dL Calcium (8.4-10.2) mg/dL Total Bilirubin (0.2-1.3) mg/dL AST (17-59) U/L ALT (0-50) U/L Alkaline Phosphatase (38-126) U/L Troponin I (0.000-0.034) ng/mL Serum Total Protein (6.3-8.2) g/dL Albumin (3.5-5.0) g/dL - Progress Progress: improved Air Movement: good Progress Note: 06/11/22 14:22 Chest x-ray was interpreted by the radiologist and the impression was reviewed by me. There is no evidence of any acute cardiopulmonary processes 06/11/22 14:28 Patient's medical issue is 1 of moderate complexity. The level of complexity and the work-up performed is based on review of the patient's past medical history, review of the patient's medication list, review of the patient's drug allergy list, history of present illness and physical findings on examination. The work-up performed was a twelve-lead EKG, troponin level, D-dimer, CMP, CBC and chest x-ray. Review of the results do not show any acute, emergent issue. Discharge instructions is for him to take a daily aspirin and to stop smoking. He is to follow-up with his pilot supervisor tomorrow by phone to make arrangements for follow-up appointment. Blood Culture(s) Obtained: No Antibiotics given: No Counseled pt/family regarding: lab results, diagnosis, need for follow-up, rad results - Departure Departure Disposition: Home Clinical Impression: Non-cardiac chest pain Condition: Stable Critical Care Time: No Referrals: JOSHUA JEFFERS MD [Primary Care Provider] - Follow up/PCP as directed Additional Instructions: Take a daily 325 mg chewable aspirin. Call your pilot supervisor today to make arranges for follow-up appointment in the next 3 to 5 days. Stop smoking or vaping tobacco.
[2022-06-11] MEDS ORDERED: BABY ASPIRIN 81 MG CHEW PO ONE (13:35)
[2022-06-11 13:39] VITALS: BP 125/72; PULSE 62; O2SAT 98
[2022-06-11 13:48] LABS: Absolute Neutrophil Ct (ANC) 4.33 x10^3/uL (1.4-6.9); BASOPHIL % 0.3 % (0.0-0.4); Basophil (Absolute #) 0.02 x10^3/uL (0-0.4); Eosinophil % 2.1 % (0.00-5.0); Eosinophil (Absolute #) 0.14 x10^3/uL (0-0.5); Hematocrit 41.7 % (42-50); Hemoglobin 14.3 g/dL (12.5-18.0); IMMATURE GRAN # 0.01 x10^3u/L (0.00-0.03); IMMATURE GRAN % 0.2 % (0.00-0.4); Lymphocyte (Absolute #) 1.47 x10^3/uL (1.0-4.6); Lymphocytes % 22.5 % (24.0-44.0); Mean Cell Volume 89.5 fL (78-100); Mean Corpuscular Hemoglobin 30.7 pg (26-32); Mean Corpuscular Hgb Concent. 34.3 g/dL (32-36); Mean Platelet Volume 9.7 fL (7.5-11.0); Monocyte (Absolute #) 0.56 x10^3/uL (0.0-1.3); Monocytes % 8.6 % (0.0-12.0); Neutrophil % 66.3 % (36.0-66.0); Platelet Count 225 x10^3/uL (150-450); Red Blood Count 4.66 x10^6/uL (4.1-5.6); Red Cell Distribution Width 11.9 % (11.5-14.0); White Blood Count 6.5 x10^3/uL (4.0-10.5)
[2022-06-11] MEDS ORDERED: BABY ASPIRIN 81 MG CHEW ONE (13:48)
--- NOTE | 2022-06-11 13:50 | XRAY ---
Indication: Chest pain. Comparison: June 26, 2021 Portable chest continues to demonstrate normal heart, lungs, and bony thorax.
[2022-06-11 14:01] LABS: ALBUMIN 4.5 g/dL (3.5-5.0); ALKALINE PHOSPHATASE 50 U/L (38-126); ANION GAP 13.1 MEQ/L (5-15); BLOOD UREA NITROGEN 17 mg/dL (9-20); CHLORIDE 106 mmol/L (98-107); Calcium 8.8 mg/dL (8.4-10.2); Carbon Dioxide 28 mmol/L (22-30); Creatinine 1 1.52 mg/dL (0.66-1.25); EST GLOMERULAR FILTRATION RATE > 60.0 ML/MIN; Glucose 92 mg/dL (74-106); Potassium 3.9 mmol/L (3.5-5.1); SGOT/AST 24 U/L (17-59); SGPT/ALT 20 U/L (0-50); SODIUM 142 mmol/L (137-145); Total Protein 7.5 g/dL (6.3-8.2)
== END 2022-06-11 14:51 | disposition home or self-care (01) ==
LOC: ED 13:30
DX: R07.89 Other chest pain (principal); Z28.310 Unvaccinated for COVID-19; Z72.0 Tobacco use
CPT/HCPCS: 36000; 36415; 71045; 80053; 84484; 85025; 85379; 93005; 99284; A9270-GY

== ENCOUNTER 2023-06-23 10:15 | Emergency (ER) | payer BC, OTHER ==
[2023-06-23 10:49] VITALS: TEMP 97.7; O2SAT 98
[2023-06-23] MEDS ORDERED: XYLOCAINE 2% HCL 20 ML MDV ONE (11:13)
[2023-06-23] MEDS ORDERED: BACIGUENT PACKET ONE (11:29)
[2023-06-23] MEDS: BACIGUENT PACKET TP ONE (11:33)
[2023-06-23] MEDS: XYLOCAINE 2% HCL 20 ML MDV IJ ONE (11:33)
[2023-06-23 11:52] VITALS: RESP 17
--- NOTE | 2023-06-23 11:52 | ERPHSYRPT ---
- History of Present Illness Time Seen by Provider: 06/23/23 10:18 Source: patient Exam Limitations: no limitations Patient Subjective Stated Complaint: C/O laceration to right leg. States a lens edge grinder machine slipped while at work and got his leg. Indicates incident happened approx 30 minutes prior to coming into the ER. Triage Nursing Assessment: Patient alert and oriented. No SOB. Skin tone normal. Patient ambulated back to ER with a large cut noted in right leg of matthieu. Jeans removed and a laceration is present to his right inner thigh just proximal to his knee. Area measures 0.9cm X 4cm with no active bleeding. Surrounding skin is red. A superficial abrasion/laceration noted just proximal to the laceration measuring 0.1cm X 4cm. 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 Patient reports bleeding initially which stopped with applying pressure. Reports moderate intensity sharp pain with palpation and movements. Has some abrasions on the left hand. No injury anywhere else. Allergies/Adverse Reactions: No Known Drug Allergies Allergy (Verified 06/23/23 10:34) Hx Tetanus, Diphtheria Vaccination/Date Given: No (Not tetanus) Hx Influenza Vaccination/Date Given: No Hx Pneumococcal Vaccination/Date Given: No Immunizations Up to Date: No Travel Risk - International Travel Have you traveled outside of the country in past 3 weeks: No - Emerging Infectious Disease Are you exhibiting symptoms associated with any current EIDs: No - Review of Systems Constitutional: No Symptoms Ears, Nose, & Throat: No Symptoms Respiratory: No Symptoms Cardiac: No Symptoms Abdominal/Gastrointestinal: No Symptoms Genitourinary Symptoms: No Symptoms Musculoskeletal: Injury Skin: Skin Lesions Neurological: No Symptoms Endocrine: No Symptoms Hematologic/Lymphatic: No Symptoms - Past Medical History Pertinent Past Medical History: No Neurological History: No Pertinent History ENT History: No Pertinent History Cardiac History: No Pertinent History Respiratory History: No Pertinent History Endocrine Medical History: No Pertinent History Musculoskeletal History: No Pertinent History GI Medical History: No Pertinent History History: No Pertinent History Psycho-Social History: No Pertinent History Male Reproductive Disorders: No Pertinent History Other Medical History: 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 He is unsure the name of the director of [employer] that told him this. - Past Surgical History Past Surgical History: Yes Neuro Surgical History: No Pertinent History Cardiac: No Pertinent History Respiratory: No Pertinent History Gastrointestinal: No Pertinent History Genitourinary: No Pertinent History Musculoskeletal: No Pertinent History Male Surgical History: No Pertinent History Other Surgical History: eye surgery at 3 - Social History Smoking Status: Never smoker How long have you smoked: years Exposure to second hand smoke: Yes Drug Use: none Patient Lives Alone: No - Nursing Vital Signs Nursing Vital Signs: Initial Vital Signs Temperature 97.7 F 06/23/23 10:36 Pulse Rate 55 L 06/23/23 10:36 Respiratory Rate 19 06/23/23 10:36 Blood Pressure 106/66 06/23/23 10:36 O2 Sat by Pulse Oximetry 98 06/23/23 10:36 Pain Scale Pain Intensity 0 - Physical Exam General Appearance: no apparent distress, alert Neck Exam: normal inspection, full range of motion Cardiovascular/Respiratory Exam: normal breath sounds, regular rate/rhythm Hips Exam: bilateral: non-tender, normal inspection, normal range of motion Legs Exam: right leg: pain, soft tissue tenderness, swelling, other (3 cm laceration with a superficial cut at the ends. Superficial cuts around with no active bleeding.), left leg: non-tender, normal inspection, normal range of motion, no evidence of injury Knees Exam: bilateral knee: non-tender, normal inspection, normal range of motion Neuro/Tendon Exam: normal sensation, normal motor functions, normal tendon functions Mental Status Exam: alert, oriented x 3, cooperative Skin Exam: normal color SpO2 Interpretation: normal SpO2: 98 O2 Delivery: Room Air Procedures - Laceration/Wound Repair Right Thigh Time of Procedure: 11:20 Wound Location: Right Wound Length (cm): 3 Wound's Depth, Shape: superficial, into muscle Wound Explored: clean Irrigated: Yes Hibiclens Prep: Yes Volume Anesthetic (ccs): 7 Wound Debrided: minimal Wound Repaired With: sutures Suture Size/Type: 3-0, prolene Number of Sutures: 4 Ordered Tests: Active Orders 24 hr Category Date Time Status Sutures STAT Care 06/23/23 11:27 Active Wound Care STAT Care 06/23/23 11:26 Active Medication Summary Discontinued Medications Generic Name Dose Route Start Last Admin Trade Name Freq PRN Reason Stop Dose Admin Bacitracin Zinc 0.9 each 06/23/23 11:27 06/23/23 11:33 Bacitracin Packet 1 Each Pckt TP 06/23/23 11:28 0.9 each STAT ONE Administration Bacitracin Zinc Confirm 06/23/23 11:29 Bacitracin Packet 1 Each Pckt Administered 06/23/23 11:30 Dose 1 each .ROUTE .STK-MED ONE Lidocaine HCl Confirm 06/23/23 11:13 Lidocaine Hcl 2% 20 Ml Mdv Administered 06/23/23 11:14 Dose 10 ml .ROUTE .STK-MED ONE Lidocaine HCl 10 ml 06/23/23 11:20 06/23/23 11:33 Lidocaine Hcl 2% 20 Ml Mdv IJ 06/23/23 11:21 10 ml STAT ONE Administration - Progress Progress: improved Progress Note: 06/23/23 11:50 27-year-old is evaluated for superficial laceration right lower thigh. Minimal oozing. Laceration is thoroughly cleaned. It was not a clean wound. Laceration is repaired with mattress sutures. Recommended avoiding exertional activities/light duty and outpatient follow-up. Will give ibuprofen and Keflex to go home. Discussed signs symptoms of worsening needing return to ER which he seemed understanding. Counseled pt/family regarding: diagnosis, need for follow-up Medical Desision Making - Diagnostic Testing Diagnostic test were ordered, analyzed, and reviewed by me: No - Risk of complications The pt has a mod risk of morbidity or mortality based on: Need for minor surgical intervention in patient with know risk factors - Departure Departure Disposition: Home Clinical Impression: Thigh laceration Condition: Stable Critical Care Time: No Referrals: JOSHUA JEFFERS MD [Primary Care Provider] - Follow up with PCP 1 day Instructions: Laceration Repair With Stitches (DC) Additional Instructions: Take Tylenol/ibuprofen as needed for pain. Intermittent ice application. Follow-up with primary care for reevaluation. Suture removal in 14 days. Forms: Work/School Release Form Prescriptions: Ibuprofen 600 mg PO Q6HPRN PRN 10 Days #20 tablet PRN Reason: Pain Cephalexin Mh 500 mg [Keflex 500 mg] 500 mg PO TID #21 cap
[2023-06-23 12:02] VITALS: BP 124/77; PULSE 61
== END 2023-06-23 12:18 | disposition home or self-care (01) ==
LOC: ED 10:15
DX: S81.811A Laceration without foreign body, right lower leg, initial encounter (principal); W29.8XXA Contact with other powered hand tools and household machinery, initial encounter
CPT/HCPCS: 12002; 96372; 99283; A9270-GY